=== PATIENT | female | born 1965 | race American Indian/Alaskan Native ===

== ENCOUNTER → 2020-03-21 | Outpatient (CLI) | payer OTHER ==
[~2020-03-21] MED LIST: ACCUNEB SO1.25 MG/1 INH; BENTYL 10 MG CA10 MG PO; CELEBREX 200 M200 MG PO; CLONAZEPAM 1 MG1 M1 PO; COMBIVENT INH; FOLIC ACID1 MG PO; GEODON40 MG PO; INDERAL80 MG PO; LEVOTHYROXIN0.112 M1 PO; LEVOXYL137 MCG PO; LISINOPRIL10 MG PO; MELATONIN3 MG PO; METHOTREXA25 MG/1 M1 SUBQ; NAPROSYN500 MG PO; NEURONTIN800 MG PO; OMEGA-3 KRILL1 EACH PO; PERCOCET PO; PROAIR HFA8.5 GM INH; SIMPONI AR50 MG/4 ML IV; TIZANIDINE HCL4 M1 PO; TRAMADOL HCL100 M1 PO; TRILEPTAL150 MG PO; VITAMIN B-122000 MC1 PO; XANAX1 MG PO; ZOFRAN4 MG PO; ZOLOFT50 MG PO
== END ==
LOC: LAB 12:10
DX: Z01.812 Encounter for preprocedural laboratory examination (principal); Z20.828 Contact with and (suspected) exposure to other viral communicable diseases

== ENCOUNTER → 2020-04-01 | Outpatient (CLI) | payer OTHER | LOC: LAB 09:42 | DX: Z01.812 Encounter for preprocedural laboratory examination (principal); Z20.828 Contact with and (suspected) exposure to other viral communicable diseases ==

== ENCOUNTER → 2020-04-01 | Outpatient (CLI) | payer OTHER ==
[2020-04-01 08:42] LABS: URINE BILIRUBIN NEGATIVE (Negative); URINE BLOOD 1+ (Negative); URINE CLARITY CLEAR; URINE COLOR YELLOW; URINE GLUCOSE-RANDOM* NEGATIVE (Negative); URINE KETONES NEGATIVE (Negative); URINE LEUKOCYTES-REFLEX TRACE (Negative); URINE NITRITE-REFLEX NEGATIVE (Negative); URINE PROTEIN (DIPSTICK) NEGATIVE (Negative); URINE UROBILINOGEN 0.2 E.U./dl (0.2-1.0)
[2020-04-01 09:02] LABS: CASTS None Seen /LPF (None Seen); CRYSTALS None Seen /LPF (None Seen); SQUAMOUS >10 Many /LPF (0-3)
[2020-04-01 09:03] LABS: BACTERIA-REFLEX 1-9 Few /HPF (None Seen); URINE RBC 0-2 Rare /HPF (0-2); URINE WBC-REFLEX 0-5 Rare /HPF (0-5)
== END ==
LOC: LAB 09:00
DX: N39.0 Urinary tract infection, site not specified (principal)

== ENCOUNTER → 2020-06-20 | Outpatient (CLI) | payer OTHER | LOC: RAD 14:33 | PROVIDERS: ATTEND Internal Medicine Pulmonary Disease | DX: R06.02 Shortness of breath (principal) ==

== ENCOUNTER 2021-02-21 09:20 | Emergency (ER) | payer OTHER ==
[~2021-02-21] VITALS: Ht 170.2 cm; Wt 111.1 kg
[2021-02-21 09:23] VITALS: BP 130/77
[2021-02-21] MEDS ORDERED: OXYCODONE-APAP1 TAB PO (09:28)
[2021-02-21] MEDS ORDERED: HYDROCHLOROTHIA25 M1 PO (09:29)
== END 2021-02-21 10:12 | disposition home or self-care (01) ==
LOC: ER 09:20
DX: M79.672 Pain in left foot (principal); F31.9 Bipolar disorder, unspecified; I10 Essential (primary) hypertension; Z98.890 Other specified postprocedural states; Z90.49 Acquired absence of other specified parts of digestive tract; Z90.711 Acquired absence of uterus with remaining cervical stump; Z79.51 Long term (current) use of inhaled steroids; Z79.891 Long term (current) use of opiate analgesic; Z79.899 Other long term (current) drug therapy; Z88.5 Allergy status to narcotic agent; Z88.6 Allergy status to analgesic agent; Z88.8 Allergy status to other drugs, medicaments and biological substances